=== PATIENT | male | born 1995 | race Caucasian/White ===

== ENCOUNTER 2023-01-03 11:13 | Emergency (ER) | payer BC, SELFPAY ==
--- NOTE | ~2023-01-03 | CT_ITS ---
EXAMINATION: CT abdomen pelvis w con INDICATION: Right lower quadrant pain TECHNIQUE: Computed tomographic images of the abdomen and pelvis were obtained after the administrati on of 100 cc of Omnipaque 350 intravenous contrast. The dose-length product (DLP) was 228.21 mGy-cm. Automated exposure control and iterative reconstruction technique were employed. COMPARISON: None available FINDINGS: The lung bases are clear. The heart size is normal. The liver, spleen, pancreas, gallbladde r, and right adrenal gland are normal. There is a 9 mm low-density mass of the left adrenal gland, li selene an adenoma. The kidneys are normal. No pathologically enlarged abdominal or pelvic lymph nodes a re identified. No free intraperitoneal gas or evidence of bowel obstruction. The appendix is normal. IMPRESSION: 1. No CT correlate for the patient's symptoms. Reviewed, dictated and finalized at location A.
[2023-01-03 11:17] VITALS: BP 116/63; PULSE 103; RESP 18; TEMP 36.4; O2SAT 100
[2023-01-03 11:33] LABS: Appearance Urine Clear (Clear); Bilirubin Urine Negative (Negative); Blood Urine Negative (Negative); Color Urine Yellow (Yellow); Glucose Urine UA Negative (Negative); Ketones Urine Negative (Negative); Leukocyte Esterase Ur Negative LEU/UL (Negative); Nitrate Urine Negative (Negative); Protein Urine Negative (Negative); Specific Grav Ur 1.015 (1.001-1.035); pH Urine 8.5 (5.0-9.0)
[2023-01-03 11:36] LABS: Add Urine Microscopic? NO
[2023-01-03 11:49] LABS: Basophils Absolute Auto 0.1 K/mm3 (0.0-0.1); Basophils Percent Auto 0.6 % (0.2-1.2); Eosinophils Absolute Auto 0.3 K/mm3 (0-0.3); Eosinophils Percent Auto 3.2 % (0-4.4); Hematocrit 45.3 % (42.0-52.0); Hemoglobin 15.4 g/dL (14.0-18.0); Immature Granulocyte Absolute 0.01 K/mm3 (0.00-0.031); Immature Granulocyte Percent A 0.1 % (0-0.5); Lymphocytes Absolute Auto 2.06 K/mm3 (0.9-3.2); Lymphocytes Percent Auto 25.4 % (18.3-44.2); Mean Corpuscular Volume 85.3 fl (80-100); Mean Platelet Volume 11.5 fl (7.4-10.4); Monocytes Absolute Auto 0.6 K/mm3 (0.1-0.6); Monocytes Percent Auto 7.9 % (2.6-8.5); Neutrophils Absolute Auto 5.1 K/mm3 (1.3-6.7); Neutrophils Percent Auto 62.8 % (45.5-73.1); Platelet Count Result 362 k/mm3 (150-375); Red Blood Count 5.31 M/mm3 (4.6-6.20); Red Cell Distribution Width 12.4 % (11.5-14.5); White Blood Count 8.1 K/mm3 (4.5-10.0)
[2023-01-03 11:59] LABS: Alanine Aminotransferase 19 U/L (6-50); Albumin Level 5.1 g/dL (3.5-5.1); Alkaline Phosphatase 46 U/L (38-126); Anion Gap 9 mmol/L (8-16); Aspartate Amino Transferase 23 U/L (17-59); Blood Urea Nitrogen 9 mg/dL (9-20); Calcium 9.6 mg/dL (8.4-10.2); Carbon Dioxide 29 mmol/L (22-30); Chloride 101 mmol/L (98-107); Estimated CRCL calculation 133 ml/min; Estimated Glomerular Filt Rate > 60; Glucose 117 mg/dL (65-110); Lipase 64 U/L (23-300); Potassium 4.4 mmol/L (3.4-5.0); Sodium 139 mmol/L (137-145)
--- NOTE | 2023-01-03 14:58 | ED.ABDPAIN ---
HPI - Abdominal Pain General Chief Complaint: Abdominal Pain Stated Complaint: Abdominal pain Time Seen by Provider: 01/03/23 12:28 History of Present Illness HPI narrative: Patient is a 27-year-old male who presents to the ER with lower abdominal pain. Right-sided. Cramping. No radiation. Ongoing over the last week. Associated with diarrhea. No fevers or chills or sweats. He is concerned he has appendicitis. No urinary frequency urgency or dysuria. Related Data Home Medications Medication Instructions Recorded Confirmed melatonin 3 mg capsule 3 mg PO QHS 11/05/20 11/05/20 Allergies Allergy/AdvReac Type Severity Reaction Status Date / Time NKDA Allergy Mild Unknown Uncoded 01/03/23 11:20 Review of Systems Review of Systems: All systems reviewed & are unremarkable except as noted in HPI and below Constitutional: Constitutional: Denies chills, Denies fatigue and Denies fever(s) ENT: Denies nasal congestion and Denies sore throat Gastrointestinal: Gastrointestinal: Reports abdominal pain, Reports diarrhea, Reports nausea and Denies vomiting PMFSH Past Medical History Medical History Anxiety Chronic insomnia Family History Family History Sibling Alcoholism Depression Anxiety Father GERD (gastroesophageal reflux disease) Grandparent Kidney failure Social History Social History Smoking status: Never smoker Alcohol intake: current Drinks per week: 3 Substance use: current Living arrangements: alone Occupation/Education: occupation Additional occupation/education comments: [employer]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 HEAD: Normocephalic, atraumatic. ENT: Mucous membranes moist. CHEST: Clear to auscultation. No respiratory distress. HEART: Regular rate and rhythm. Normal peripheral pulses. ABDOMEN: Soft, mild tenderness in right lower quadrant without guarding, nondistended. EXTREMITIES: Normal range of motion. No edema. SKIN: Warm, dry, no rash. NEURO: Alert and oriented x3. PSYCH: Normal mood and affect. Course Course Emergency Course: Patient resting comfortably. Informed of results. Discharge home. Vital Signs Vital signs: Vital Signs Temperature 97.6 F 01/03/23 11:17 Pulse Rate 103 H 01/03/23 11:17 Respiratory Rate 18 01/03/23 11:17 Blood Pressure 116/63 01/03/23 11:17 Pulse Oximetry 100 01/03/23 11:17 Oxygen Delivery Room Air 01/03/23 11:17 Temperature 97.6 F 01/03/23 11:17 Pulse Rate 103 H 01/03/23 11:17 Respiratory Rate 18 01/03/23 11:17 Blood Pressure 116/63 01/03/23 11:17 Pulse Oximetry 100 01/03/23 11:17 Oxygen Delivery Room Air 01/03/23 11:17 MDM - Abdominal Pain Lab Data 01/03/23 11:41 01/03/23 11:41 Labs: Lab Results 01/03/23 01/03/23 Range/Units 11:24 11:41 WBC 8.1 (4.5-10.0) K/mm3 RBC 5.31 (4.6-6.20) M/mm3 Hgb 15.4 (14.0-18.0) g/dL Hct 45.3 (42.0-52.0) % MCV 85.3 (80-100) fl MCH 29.0 (26-34) pg MCHC 34.0 (32-36) g/dl RDW 12.4 (11.5-14.5) % Plt Count 362 (150-375) k/mm3 MPV 11.5 H (7.4-10.4) fl Immature Gran % (Auto) 0.1 (0-0.5) % Neut % (Auto) 62.8 (45.5-73.1) % Lymph % (Auto) 25.4 (18.3-44.2) % [place] % (Auto) 7.9 (2.6-8.5) % Eos % (Auto) 3.2 (0-4.4) % Baso % (Auto) 0.6 (0.2-1.2) % Lymph # (Auto) 2.06 (0.9-3.2) K/mm3 [place] # (Auto) 0.6 (0.1-0.6) K/mm3 Eos # (Auto) 0.3 (0-0.3) K/mm3 Baso # (Auto) 0.1 (0.0-0.1) K/mm3 Abs Immat Gran (auto) 0.01 (0.00-0.031) K/mm3 Absolute Neuts (auto) 5.1 (1.3-6.7) K/mm3 Absolute Nucleated RBC 0.0 (0.0-0.012) K/mm3 Nucleated RBC % 0.0
== END 2023-01-03 15:09 | disposition home or self-care (01) ==
PROVIDERS: Emergency Provider Emergency Medicine
DX: R10.31 Right lower quadrant pain (principal); F51.04 Psychophysiologic insomnia
CPT/HCPCS: 36415; 74177; 80053; 81003; 83690; 85025; 99284; Q9967

== ENCOUNTER 2024-03-14 08:35 | Emergency (ER) | payer BC, SELFPAY ==
[2024-03-14] VITALS (19 sets, daily range): BP systolic 109–148; BP diastolic 68–108; PULSE 70–115; RESP 11–30; TEMP 36.6; O2SAT 91–100
--- NOTE | ~2024-03-14 | XR_ITS ---
EXAMINATION: XR chest 2V DATE: 03/14/2024 11:28 INDICATION: Shortness of breath. Upper abdominal pain. TECHNIQUE: Frontal and lateral views of the chest were obtained. COMPARISON: CT abdomen and pelvis 01/03/2023 FINDINGS: There is no pneumonia, pleural effusion, or pneumothorax. The heart size is normal. IMPRESSION: 1. No acute cardiopulmonary disease. Reviewed, dictated and finalized at location A.
--- NOTE | ~2024-03-14 | CT_ITS ---
EXAMINATION: CT abdomen pelvis w con DATE: 03/14/2024 13:36 INDICATION: Upper abdominal pain. TECHNIQUE: Computed tomography (CT) of the abdomen and pelvis was performed with 100 mL Omnipaque 350 intravenous contrast. Automated exposure control and iterative reconstruction technique were employe d. The dose-length product was 285.48 mGy-cm. COMPARISON: CT abdomen pelvis 01/03/2023 FINDINGS: The visualized portions of the lung bases are clear without pneumonia or pleural effusion. The heart size is normal. No pericardial effusion. The liver, gallbladder, spleen, pancreas, adrenal glands, and kidneys are normal. There are no dilated loops of bowel. The appendix is normal. There is a right-sided hydrocele. There are no pathologically enlarged lymph nodes. There is no free intraper itoneal fluid. There are chronic bilateral L5 pars defects. There is mild chronic anterior wedging of multiple thoracic vertebral bodies. There is mild lumbar spondylosis. IMPRESSION: 1. No etiology for the patient's symptoms. Reviewed, dictated and finalized at location A.
--- NOTE | 2024-03-14 10:31 | ED.ABDPAIN ---
HPI - Abdominal Pain General Chief Complaint: Abdominal Pain Stated Complaint: abd pain, I have a growth on my tonsil Time Seen by Provider: 03/14/24 10:31 Focused HPI: This is a 28 year old male that presents to the ER for upper abdominal pain. Also reports throat discomfort. Reports a growth on his right tonsil. Reports neck pain, headache, chills, shortness of breath and heart palpitations. This has been ongoing over the last couple of weeks. Denies fever, vomiting, diarrhea, dysuria or hematuria. GENERAL: Well-appearing, well-nourished, and in no acute distress. HEAD: Normocephalic, atraumatic. CHEST: Clear to auscultation. ?No respiratory distress. HEART: Regular rate and rhythm.? NEURO: ?Alert and oriented x3. Patient screened in triage and initial orders placed.? ?Additional care and disposition to be based upon?diagnostic testing and treatment. Related Data Home Medications Medication Instructions Recorded Confirmed melatonin 3 mg capsule 3 mg PO QHS 11/05/20 11/05/20 Allergies Allergy/AdvReac Type Severity Reaction Status Date / Time NKDA Allergy Mild Unknown Uncoded 03/14/24 08:46 Review of Systems Review of Systems: CONSTITUTIONAL: Denies fever CARDIOVASCULAR: Reports chest pain, palpitations RESPIRATORY: Reports dyspnea. GASTROINTESTINAL: Reports abdominal pain. Denies nausea, vomiting, or diarrhea. 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 HEAD: Normocephalic, atraumatic. EYES: EOMI. ENT: Nares clear, no rhinorrhea or epistaxis. Mucous membranes moist. Oropharynx without tonsillar hypertrophy exudate or other lesions. NECK: Supple. No adenopathy or masses. CHEST: Clear to auscultation. No respiratory distress. No wheezes rales or rhonchi HEART: Regular rate and rhythm. No murmur heard. Normal peripheral pulses. ABDOMEN: Soft, nontender, nondistended, normal active bowel sounds. EXTREMITIES: Normal range of motion. No edema. SKIN: Warm, dry, no rash. NEURO: No focal deficits. Alert and oriented x3. PSYCH: Anxious Course Course Emergency Course: Patient updated on his workup and agrees with plan of care Vital Signs Vital signs: Vital Signs Temperature 98 F 03/14/24 08:42 Pulse Rate 108 H 03/14/24 08:42 Respiratory Rate 16 03/14/24 08:42 Blood Pressure 148/108 H 03/14/24 08:42 Pulse Oximetry 100 03/14/24 08:42 Oxygen Delivery Room Air 03/14/24 08:42 Temperature 98 F 03/14/24 08:42 Pulse Rate 115 H 03/14/24 15:01 Respiratory Rate 22 H 03/14/24 15:01 Blood Pressure 122/68 03/14/24 15:01 Pulse Oximetry 100 03/14/24 15:01 Oxygen Delivery Room Air 03/14/24 11:27 MDM - Abdominal Pain MDM Narrative Medical decision making narrative: Patient presents to the emergency department with a multitude of complaints. Tachycardic initially, this normalized with IV fluids. CBC without concerning findings. Metabolic panel shows elevated potassium initially. Patient was hydrated. This normalized. TSH is normal. Influenza, RSV and COVID screens are negative. D-dimer is not elevated. EKG without concerning changes. Base
--- NOTE | 2024-03-14 10:32 | ECG_ITS ---
Test Date: 2024-03-14 11:04:11 Measurements Intervals [place] Rate: 79 P: -58 VT: 120 QRS: 40 QRSD: 89 T: 58 QT: 334 QTc: 383 Interpretive Statements ECTOPIC ATRIAL RHYTHM WITH OCCASIONAL SUPRAVENTRICULAR PREMATURE COMPLEXES BASELINE ARTIFACT- I, II, AVR ABNORMAL ECG No previous ECG available for comparison Electronically Signed On 03-14-2024 11:14:52 CDT by Cayden Santana D.O.
[2024-03-14 11:28] LABS: Basophils Absolute Auto 0.1 K/mm3 (0.0-0.1); Basophils Percent Auto 0.7 % (0.2-1.2); Eosinophils Absolute Auto 0.1 K/mm3 (0-0.3); Eosinophils Percent Auto 0.8 % (0-4.4); Hematocrit 48.8 % (42.0-52.0); Hemoglobin 16.7 g/dL (14.0-18.0); Immature Granulocyte Absolute 0.04 K/mm3 (0.00-0.031); Immature Granulocyte Percent A 0.4 % (0-0.5); Lymphocytes Absolute Auto 1.61 K/mm3 (0.9-3.2); Lymphocytes Percent Auto 15.7 % (18.3-44.2); Mean Corpuscular HGB Conc 34.2 g/dl (32-36); Mean Corpuscular Hemoglobin 29.5 pg (26-34); Mean Corpuscular Volume 86.1 fl (80-100); Mean Platelet Volume 11.6 fl (7.4-10.4); Monocytes Absolute Auto 0.7 K/mm3 (0.1-0.6); Monocytes Percent Auto 6.8 % (2.6-8.5); Neutrophils Absolute Auto 7.7 K/mm3 (1.3-6.7); Neutrophils Percent Auto 75.6 % (45.5-73.1); Platelet Count Result 388 k/mm3 (150-375); Red Blood Count 5.67 M/mm3 (4.6-6.20); Red Cell Distribution Width 12.3 % (11.5-14.5); White Blood Count 10.2 K/mm3 (4.5-10.0)
[2024-03-14 11:33] LABS: Alanine Aminotransferase 19 U/L (6-50); Albumin Level 5.5 g/dL (3.5-5.1); Alkaline Phosphatase 47 U/L (38-126); Anion Gap 12 mmol/L (4-12); Aspartate Amino Transferase 44 U/L (17-59); Bilirubin,Total 1.5 mg/dL (0.2-1.3); Blood Urea Nitrogen 12 mg/dL (9-20); Calcium 9.7 mg/dL (8.4-10.2); Carbon Dioxide 26 mmol/L (22-30); Chloride 98 mmol/L (98-107); Estimated CRCL calculation 139 ml/min; Estimated Glomerular Filt Rate > 60; Glucose 94 mg/dL (65-110); Lipase 60 U/L (23-300); Potassium 5.9 mmol/L (3.4-5.0); Sodium 136 mmol/L (137-145)
[2024-03-14 11:45] LABS: INR 1.1; Prothrombin Time 14.3 Seconds (11.1-14.7)
[2024-03-14 11:46] LABS: Partial Thromboplastin Time 30.6 Seconds (22.3-36.8)
[2024-03-14 11:47] LABS: Troponin I 0.019 ng/mL (0.000-0.034)
[2024-03-14] MEDS: SODIUM CHLORIDE 0.9% IV 1,000 ML 999 ML IV CONT (11:47)
[2024-03-14 12:44] LABS: Thyroid Stimulating Hormone Reflex 0.827 uIU/mL (0.465-4.68)
[2024-03-14 13:00] LABS: D Dimer < 0.27 ug/mL (<0.48)
[2024-03-14 13:01] LABS: Influenza A QL RT-PCR Negative (Negative); Influenza B QL RT-PCR Negative (Negative); RSV RNA, RT-PCR Negative (Negative); SARS-CoV-2 RNA PCR Negative (Negative)
--- NOTE | 2024-03-14 13:18 | ECG_ITS ---
Test Date: 2024-03-14 14:12:14 Measurements Intervals [place] Rate: 81 P: -24 PA: 121 QRS: 18 QRSD: 89 T: 46 QT: 350 QTc: 407 Interpretive Statements ECTOPIC ATRIAL RHYTHMRHYTHM ABNORMAL ECG Compared to ECG 03/14/2024 11:04:11 NO SIGNIFICANT CHANGE Electronically Signed On 03-14-2024 14:52:56 CDT by Cayden Santana D.O.
[2024-03-14 14:24] LABS: Anion Gap 11 mmol/L (4-12); Blood Urea Nitrogen 11 mg/dL (9-20); Calcium 9.3 mg/dL (8.4-10.2); Carbon Dioxide 27 mmol/L (22-30); Chloride 99 mmol/L (98-107); Estimated CRCL calculation 139 ml/min; Estimated Glomerular Filt Rate > 60; Glucose 84 mg/dL (65-110); Potassium 4.7 mmol/L (3.4-5.0); Sodium 137 mmol/L (137-145)
[2024-03-14 14:34] LABS: Troponin I < 0.012 ng/mL (0.000-0.034)
== END 2024-03-14 15:09 | disposition home or self-care (01) ==
PROVIDERS: Emergency Provider Physician Assistant
DX: R00.2 Palpitations (principal); R06.02 Shortness of breath; R10.10 Upper abdominal pain, unspecified; Z20.822 Contact with and (suspected) exposure to COVID-19
CPT/HCPCS: 36415; 71046; 74177; 80048; 80053; 83690; 84443; 84484; 85025; 85380; 85610; 85730; 87637; 93005; 96360; 96361; 99284; J7030; Q9967